=== PATIENT | female | born 1995 | race Caucasian/White ===

== ENCOUNTER 2017-10-09 11:10 | Inpatient (IN) ==
[2017-10-11 12:16] VITALS: BP 113/64
== END 2017-10-11 13:40 | disposition home or self-care (01) | DRG 775 ==
LOC: N.LDOUT 11:10 → N.LD 11:11 → N.OB 21:30
PROVIDERS: ADMIT Obstetrics & Gynecology; ATTEND Obstetrics & Gynecology